=== PATIENT | male | born 1935 | race Caucasian/White ===

== ENCOUNTER → 2016-05-07 | Outpatient (CLI) | payer OTHER ==
[~2016-05-07] MED LIST: ALTACE10 MG PO; ANALGESIC325 M1 PO; ANSAID100 MG PO; ASCORBIC ACID100 MG PO; ASPIRIN E.C.81 M2 PO; CETRIZINE PO; CYANOCOBALAM1000 MCG PO; DIABETA,MICRONAS5 MG PO; DITROPAN XL10 MG PO; FERGON324 MG PO; FOLIC ACID1 MG PO; GABAPENTIN100 MG PO; HCTZ PO; HYDRODIURIL,ORE25 MG PO; HYDROXYCHLOROQ200 MG PO; IRON325 M1 PO; LANTUS 3 M100 UNITS/ SC; LANTUS 3 M100 UNITS1 SC; LANTUS100 UNIT/1 SQ; LEVAQUIN500 MG PO; LIPITOR40 MG PO; LOSARTAN POTAS100 MG PO; MAGNESIUM200 MG PO; MARTINIC1 EACH PO; METAGLIP 5/51 TABLET PO; METHOTREXATE2.5 M2 PO; NEXIUM40 MG PO; NIASPAN,SLO-N1000 MG PO; NITROSTAT0.4 MG PO; NOVOLOG 10100 UNITS/ SC; NOVOLOG PE100 UNITS/ SC; NOVOLOG100 UNIT/3 SQ; Niaspan,Slo-Niacin PO; OCUVITE LUTEIN1 EACH PO; OMEGA 3 1,0001 EACH PO; OPTIVAR 0.120 DROP/6 BOTH EYES; OXYCODON-ACETA1 EAC1 PO; PERCOCET 5/31 TABLET PO; PLAVIX75 MG PO; PREDNISONE10 M2 PO; PRILOSEC40 MG; PRILOSEC40 MG PO; Percocet 5/325,Endoc PO; Percocet 7.5/500,End PO; REGLAN5 MG PO; SANTYL30 GM; SANTYL30 GM TP; TOPROL XL50 MG PO; TRICOR145 MG PO; VITAMIN B-6100 MG PO; VITAMIN B12-FO1 EACH PO; VITAMIN B650 MG PO; VITAMIN D3400 UNI1 PO; ZYRTEC10 M3 PO
== END | disposition home or self-care (01) ==
LOC: RAD 12:51
DX: J32.4 Chronic pansinusitis (principal)
CPT/HCPCS: 70486

== ENCOUNTER 2016-05-21 06:23 | Day surgery (SDC) | payer OTHER ==
[~2016-05-21] VITALS: Ht 165.1 cm; Wt 68.0 kg
[~2016-05-21 06:23] MED LIST changes: +ASCORBIC ACID500 M3 PO; +AZELASTINE HCL6 ML BOTH EYES; +B COMPLETE1 EACH PO; +CATAPRES0.1 MG PO; +CEFTIN250 MG PO; +CINNAMON500 MG PO; +CO Q-10100 MG PO; +FLONASE ALLERG9.9 ML BOTH NARES; +GLUCOPHAGE500 MG PO; +MAGNESIUM250 MG PO; +METHOTREXATE2.5 MG PO; +MUCINEX1200 MG PO; +MYRBETRIQ50 MG PO; +NITROSTAT0.4 MG SL; +OMEGA 3 500 SO1 EACH PO; +PLAQUENIL200 MG PO; +PREDNISONE2.5 MG PO; +PRILOSEC20 MG PO; +PROLIA60 MG/1 ML SC; +VITAMIN D-32000 UNI2 PO
[2016-05-21] MEDS ORDERED: OMEPRAZOLE20 MG PO (07:28)
[2016-05-21] MEDS ORDERED: PLAVIX75 MG PO (07:44)
[2016-05-21 07:51] VITALS: BP 149/86
[2016-05-21 07:53] LABS: POINT-OF-CARE METER ID UU14174212
[2016-05-21 12:32] LABS: POINT-OF-CARE METER ID UU13113675; POINT-OF-CARE USER ID 515036437
[2016-05-21 13:21] VITALS: BP 192/84
[2016-05-21 15:10] VITALS: BP 186/89
== END 2016-05-21 15:25 | disposition home or self-care (01) ==
LOC: SDC 06:23
PROVIDERS: Otolaryngology
PROC: 09CX4ZZ Extirpation of Matter from Left Sphenoid Sinus, Percutaneous Endoscopic Approach (ICD-10-PCS; principal; 2016-05-21)
PROC: 09TU4ZZ Resection of Right Ethmoid Sinus, Percutaneous Endoscopic Approach (ICD-10-PCS; principal; 2016-05-21)
PROC: 09TV4ZZ Resection of Left Ethmoid Sinus, Percutaneous Endoscopic Approach (ICD-10-PCS; principal; 2016-05-21)
PROC: 09CW4ZZ Extirpation of Matter from Right Sphenoid Sinus, Percutaneous Endoscopic Approach (ICD-10-PCS; principal; 2016-05-21)
DX: J32.9 Chronic sinusitis, unspecified (principal); I10 Essential (primary) hypertension; E78.5 Hyperlipidemia, unspecified; E11.9 Type 2 diabetes mellitus without complications; M06.9 Rheumatoid arthritis, unspecified; M19.90 Unspecified osteoarthritis, unspecified site
CPT/HCPCS: 82948; 87070; 87075; 87102; 87205; 88305; 88312; J0131; J0330; J0690; J1100; J1170; J2250; J2405; J2710; J3301; J7050

== ENCOUNTER 2017-03-09 09:23 | Inpatient (IN) | payer OTHER ==
[~2017-03-09] VITALS: Ht 162.6 cm; Wt 59.7 kg
[~2017-03-09 09:23] MED LIST changes: +CALCIUM MAGNES1 EAC1 PO; -MAGNESIUM250 MG PO; +MIRALAX17 GM PO; +OMEPRAZOLE20 MG PO; +PRINZIDE 20-121 EACH PO; +ULTRAM50 MG PO
[2017-03-09 09:55] VITALS: BP 172/99
[2017-03-09 10:07] LABS: POINT-OF-CARE METER ID UU14174212
[2017-03-09 14:01] LABS: POINT-OF-CARE METER ID UU13113675
[2017-03-09 18:49] LABS: POINT-OF-CARE METER ID UU13113675
[2017-03-09 21:30] VITALS: BP 170/81
[2017-03-09 23:21] VITALS: BP 167/88
[2017-03-10 04:24] VITALS: BP 181/77
[2017-03-10 07:43] VITALS: BP 162/76
[2017-03-10] MEDS ORDERED: HYDROCODON-ACE1 EAC7 PO (08:00)
[2017-03-10] MEDS ORDERED: METHOTREXATE2.5 MG PO (08:43)
[2017-03-10] MEDS ORDERED: PLAQUENIL200 MG PO (08:43)
[2017-03-10] MEDS ORDERED: PLAVIX75 MG PO (08:44)
[2017-03-10] MEDS ORDERED: OMEGA 3 500 SO1 EACH PO (08:44)
[2017-03-10 15:09] VITALS: BP 168/79
== END 2017-03-10 15:47 | disposition home or self-care (01) | DRG 517 ==
LOC: SDC 09:23 → 2SOUTH 15:10 → 3EAST 15:10 → SDC 15:39 → ENRESERV 17:18 → 3EAST 20:50 → ENPENDDIS 03-10 → 3EAST 03-10 15:47
PROVIDERS: Neurological Surgery
PROC: 01NB0ZZ Release Lumbar Nerve, Open Approach (ICD-10-PCS; principal; 2017-03-09)
DX: M48.061 Spinal stenosis, lumbar region without neurogenic claudication (principal); M41.9 Scoliosis, unspecified; M51.16 Intervertebral disc disorders with radiculopathy, lumbar region; M47.9 Spondylosis, unspecified; G47.30 Sleep apnea, unspecified; M06.9 Rheumatoid arthritis, unspecified; I25.10 Atherosclerotic heart disease of native coronary artery without angina pectoris; Z80.9 Family history of malignant neoplasm, unspecified; Z79.01 Long term (current) use of anticoagulants; Z95.5 Presence of coronary angioplasty implant and graft; Z90.49 Acquired absence of other specified parts of digestive tract; I25.2 Old myocardial infarction; Z87.442 Personal history of urinary calculi
CPT/HCPCS: 72100; 76000; 82948; J0330; J0690; J1170; J2270; J2405; J2710; J2765; J3010; J7512

== ENCOUNTER 2017-09-02 13:07 | Observation (INO) | payer OTHER ==
[~2017-09-02] VITALS: Ht 162.6 cm; Wt 60.3 kg
[~2017-09-02 13:07] MED LIST changes: -B COMPLETE1 EACH PO; +HYDROCODON-ACE1 EAC7 PO
[2017-09-02 13:43] LABS: BASOPHIL (%) 0.7 % (0-1); BASOPHIL COUNT 0.1 K/uL (0-0.1); EOSINOPHIL (%) 1.6 % (0-5); EOSINOPHIL COUNT 0.2 K/uL (0-0.3); HEMATOCRIT 38.4 % (38.0-50.0); LYMPHOCYTE COUNT 1.7 K/uL (1.0-2.8); MCHC 33.9 G/DL (30.0-36.0); MCV 88.7 FL (86-99); MONOCYTE (%) 5.3 % (3-12); MONOCYTE COUNT 0.5 K/uL (0-0.8); NEUTROPHIL (%) 72.4 % (45-76); NEUTROPHIL COUNT 6.6 K/uL (1.8-6.4); PLATELET COUNT 231 K/uL (156-360); RBC DIS.WIDTH-CV 13.2 % (11.8-14.6); RBC DIS.WIDTH-SD 43.1 % (39-53); RED BLOOD COUNT 4.33 M/uL (4.00-5.50); WHITE BLOOD COUNT 9.1 K/uL (4.1-10.2)
[2017-09-02 13:52] LABS: ALBUMIN 3.6 g/dL (3.2-4.8); CHLORIDE 104 mEq/L (99-109); POTASSIUM 3.5 mEq/L (3.7-5.4); SODIUM 138 mEq/L (136-147)
[2017-09-02 13:53] LABS: MAGNESIUM 1.9 mg/dL (1.3-2.7)
[2017-09-02 13:55] LABS: GLUCOSE 183 mg/dL (70-99)
[2017-09-02 13:56] LABS: TOTAL BILIRUBIN 0.4 mg/dL (0.0-1.0)
[2017-09-02 13:58] LABS: ALKALINE PHOSPHATASE 32 IU/L (3-129); GFR ESTIMATE (CALCULATED) > 59 mL/min/ (58.99-99999); PHOSPHORUS 3.4 mg/dL (2.5-4.9)
[2017-09-02 13:59] LABS: UREA NITROGEN (BUN) 32 mg/dL (9-23)
[2017-09-02 14:00] LABS: AST (GOT) 18 IU/L (2-34)
[2017-09-02 14:01] LABS: ALT (GPT) 13 IU/L (3-49)
[2017-09-02 14:04] LABS: TROP-I INTERPRETATION NEGATIVE; TROPONIN-I 0.02 ng/mL (0.0-0.30)
[2017-09-02 14:30] LABS: INTER. NORMALIZED RATIO 1.1
[2017-09-02 14:32] LABS: PTT 28.4 SEC (25-37)
[2017-09-02] MEDS ORDERED: ELIQUIS2.5 MG PO (14:39)
[2017-09-02] MEDS ORDERED: OMEGA-31000 M1 PO (14:40)
[2017-09-02] MEDS ORDERED: FERROUS SULFAT324 M1 PO (14:41)
[2017-09-02] MEDS ORDERED: FLONASE16 G1 BOTH NARES (14:41)
[2017-09-02] MEDS ORDERED: OXYBUTYNIN CHLO15 MG PO (14:42)
[2017-09-02] MEDS ORDERED: TURMERIC500 M2 PO (14:44)
[2017-09-02] MEDS ORDERED: CALCIUM CARBON650 MG PO (14:44)
[2017-09-02] MEDS ORDERED: MAGNESIUM250 MG PO (14:46)
[2017-09-02 17:05] VITALS: BP 188/78
[2017-09-02 19:45] VITALS: BP 183/78
[2017-09-03 00:10] VITALS: BP 185/90
[2017-09-03 03:39] VITALS: BP 173/89
[2017-09-03 06:18] LABS: CHLORIDE 102 MEQ/L (99-109); CREATININE 0.9 MG/DL (0.6-1.3); GFR ESTIMATE (CALCULATED) > 59 mL/min/ (58.99-99999); GLUCOSE 126 mg/dL (70-99); POTASSIUM 3.5 MEQ/L (3.7-5.4); SODIUM 138 MEQ/L (136-147); UREA NITROGEN (BUN) 23 mg/dL (9-23)
[2017-09-03 08:05] LABS: THYROTROPIN (TSH) 0.72 MIU/L (0.4-5.5)
[2017-09-03 08:38] VITALS: BP 191/81
[2017-09-03 12:35] VITALS: BP 136/69
[2017-09-03 16:54] VITALS: BP 189/77
[2017-09-03 19:43] VITALS: BP 180/79
[2017-09-04] VITALS (7 sets, daily range): BP systolic 149–176; BP diastolic 67–83
[2017-09-04 05:20] LABS: BASOPHIL (%) 0.5 % (0-1); BASOPHIL COUNT 0.1 K/uL (0-0.1); EOSINOPHIL (%) 2.5 % (0-5); EOSINOPHIL COUNT 0.2 K/uL (0-0.3); HEMATOCRIT 38.1 % (38.0-50.0); HEMOGLOBIN 12.7 G/DL (12.5-16.6); IMMATURE GRANULOCYTE (%) 0.9 % (0.0-0.7); LYMPHOCYTE (%) 26.9 % (15-42); LYMPHOCYTE COUNT 2.5 K/uL (1.0-2.8); MCH 29.7 PG (29.0-34.0); MCHC 33.3 G/DL (30.0-36.0); MONOCYTE (%) 5.9 % (3-12); MONOCYTE COUNT 0.6 K/uL (0-0.8); NEUTROPHIL (%) 63.3 % (45-76); NEUTROPHIL COUNT 5.9 K/uL (1.8-6.4); PLATELET COUNT 237 K/uL (156-360); RBC DIS.WIDTH-CV 13.2 % (11.8-14.6); RED BLOOD COUNT 4.28 M/uL (4.00-5.50); WHITE BLOOD COUNT 9.3 K/uL (4.1-10.2)
[2017-09-04 06:02] LABS: CHLORIDE 105 MEQ/L (99-109); CREATININE 1.1 MG/DL (0.6-1.3); GFR ESTIMATE (CALCULATED) > 59 mL/min/ (58.99-99999); GLUCOSE 122 mg/dL (70-99); SODIUM 137 MEQ/L (136-147); UREA NITROGEN (BUN) 21 mg/dL (9-23)
[2017-09-05 04:12] VITALS: BP 165/76
[2017-09-05 05:20] LABS: HEMATOCRIT 39.1 % (38.0-50.0); HEMOGLOBIN 12.9 G/DL (12.5-16.6); MCH 29.3 PG (29.0-34.0); MCV 88.7 FL (86-99); PLATELET COUNT 244 K/uL (156-360); RBC DIS.WIDTH-CV 13.2 % (11.8-14.6); RBC DIS.WIDTH-SD 42.7 % (39-53); RED BLOOD COUNT 4.41 M/uL (4.00-5.50); WHITE BLOOD COUNT 10.9 K/uL (4.1-10.2)
[2017-09-05 05:51] LABS: CHLORIDE 101 MEQ/L (99-109); GFR ESTIMATE (CALCULATED) > 59 mL/min/ (58.99-99999); GLUCOSE 129 mg/dL (70-99); POTASSIUM 3.6 MEQ/L (3.7-5.4); SODIUM 138 MEQ/L (136-147); UREA NITROGEN (BUN) 25 mg/dL (9-23)
[2017-09-05 07:19] VITALS: BP 172/75
[2017-09-05 11:21] VITALS: BP 146/65
[2017-09-05 15:58] VITALS: BP 151/72
[2017-09-05 19:40] VITALS: BP 146/65
[2017-09-05 23:12] VITALS: BP 165/63
[2017-09-06 03:57] VITALS: BP 135/60
[2017-09-06 11:05] VITALS: BP 143/76
[2017-09-06 16:36] VITALS: BP 138/67
[2017-09-06 19:50] VITALS: BP 137/74
[2017-09-06 23:48] VITALS: BP 138/81
[2017-09-07 04:26] VITALS: BP 138/68
[2017-09-07 05:23] LABS: HEMOGLOBIN 12.7 G/DL (12.5-16.6); MCH 29.5 PG (29.0-34.0); MCHC 33.4 G/DL (30.0-36.0); MCV 88.2 FL (86-99); PLATELET COUNT 225 K/uL (156-360); RBC DIS.WIDTH-CV 13.2 % (11.8-14.6); RBC DIS.WIDTH-SD 42.8 % (39-53); RED BLOOD COUNT 4.31 M/uL (4.00-5.50); WHITE BLOOD COUNT 11.1 K/uL (4.1-10.2)
[2017-09-07 05:50] LABS: CHLORIDE 100 MEQ/L (99-109); CREATININE 1.1 MG/DL (0.6-1.3); GFR ESTIMATE (CALCULATED) > 59 mL/min/ (58.99-99999); GLUCOSE 111 mg/dL (70-99); MAGNESIUM 1.6 mg/dl (1.3-2.7); POTASSIUM 4.1 MEQ/L (3.7-5.4); SODIUM 138 MEQ/L (136-147); UREA NITROGEN (BUN) 31 mg/dL (9-23)
[2017-09-07 07:45] VITALS: BP 167/77
[2017-09-07 12:09] VITALS: BP 148/70
[2017-09-07] MEDS ORDERED: METFORMIN HCL500 MG PO (14:07)
== END 2017-09-07 15:37 | disposition home or self-care (01) ==
LOC: EME 13:07 → ENRESERV 15:27 → EME 15:28 → CATH 15:32 → 2SOUTH 15:44 → CATH 15:44 → ENRESERV 15:58 → CANRESERV 16:04 → ENRESERV 16:21 → 4EAST 16:43 → 2SOUTH 16:43 → 4EAST 16:43
PROVIDERS: Emergency Medicine; Internal Medicine; Student in an Organized Health Care Education/Training Program
DX: I49.5 Sick sinus syndrome (principal); I44.1 Atrioventricular block, second degree; I48.0 Paroxysmal atrial fibrillation; E87.6 Hypokalemia; E11.9 Type 2 diabetes mellitus without complications; I25.10 Atherosclerotic heart disease of native coronary artery without angina pectoris; Z95.1 Presence of aortocoronary bypass graft; Z79.01 Long term (current) use of anticoagulants; R11.2 Nausea with vomiting, unspecified; I10 Essential (primary) hypertension; E78.5 Hyperlipidemia, unspecified; M06.9 Rheumatoid arthritis, unspecified; G47.30 Sleep apnea, unspecified; F03.90 Unspecified dementia, unspecified severity, without behavioral disturbance, psychotic disturbance, mood disturbance, and anxiety; Z87.19 Personal history of other diseases of the digestive system; Z85.828 Personal history of other malignant neoplasm of skin; Z96.652 Presence of left artificial knee joint; Z88.2 Allergy status to sulfonamides; Z88.8 Allergy status to other drugs, medicaments and biological substances
CPT/HCPCS: 71045; 80047; 80048; 80053; 82948; 83735; 84100; 84443; 84484; 85025; 85027; 85610; 85730; 86850; 86900; 86901; 93005; 94799; 99281; 99284; C1785; C1892; C1894; C1898; G0378; J0690; J1815; J2250; J2405; J3010; J7512; S0020